=== PATIENT | male | born 1955 | race Two or more races ===

== ENCOUNTER 2023-12-29 06:32 | Inpatient (IN) | payer SELFPAY ==
[2023-12-29] MEDS ORDERED: ACETAMINOPHEN INJECTION 100 ML IVPB ONE (07:56)
[2023-12-29] MEDS ORDERED: MECLIZINE HCL 25 MG TABLET (FP) ONE (07:56)
[2023-12-29] MEDS: ACETAMINOPHEN 1000 MG/100 ML BAG IVPB ONE (08:01)
[2023-12-29] MEDS: MECLIZINE HCL 25 MG TABLET (FP) PO ONE (08:01)
[2023-12-29 08:23] LABS: INR 1.21 (0.83-1.09); PROTHROMBIN TIME (PATIENT) 13.6 SEC (9.7-13.0)
[2023-12-29 08:26] LABS: ACTIVATED PTT 34.8 SECONDS (25.2-36.5); BASO % 0.9 % (0-2.0); EOS % 3.9 % (0-4.5); HEMATOCRIT 44.1 % (35.4-49); HEMOGLOBIN 14.8 GM/dL (11.7-16.9); LYMPH % 42.5 % (8-40); MCH 31.8 pg (25.7-33.7); MCHC 33.6 g/dl (32.0-35.9); MEAN CELL VOLUME 94.5 fl (80-96); MEAN PLT VOLUME 8.3 fl (7.5-11.1); MONO % 17.8 % (3.8-10.2); NEUT % 34.9 % (42.8-82.8); PLATELET COUNT 170 10^3/uL (134-434); RBC 4.67 M/mm3 (4.00-5.60); RDW 15.1 % (11.9-15.9); WHITE BLOOD COUNT 5.4 K/mm3 (4.0-10.0)
[2023-12-29 08:47] LABS: POTASSIUM 4.6 mmol/L (3.5-5.1)
[2023-12-29 08:49] LABS: CALCIUM 9.1 mg/dL (8.5-10.1)
[2023-12-29 08:50] LABS: ALBUMIN 3.4 g/dl (3.4-5.0); BLOOD UREA NITROGEN 16.4 mg/dL (7-18); MAGNESIUM 1.8 mg/dL (1.8-2.4)
[2023-12-29 08:53] LABS: CREATININE 1.2 mg/dL (0.55-1.3)
[2023-12-29 08:54] LABS: BILIRUBIN,TOTAL 0.5 mg/dL (0.2-1)
[2023-12-29 08:55] LABS: TOT PROT 7.2 g/dl (6.4-8.2)
[2023-12-29 09:38] LABS: N-TERMINAL BNP 352.1 pg/ml (5-125)
[2023-12-29] MEDS ORDERED: MECLIZINE HCL 12.5 MG TABLET PO PRN (12:18)
[2023-12-29] MEDS: INSULIN ASPART SLIDING SCALE (NOVOLOG) 1 VIAL SQ SCH (17:06)
[2023-12-29] MEDS ORDERED: hydrALAZINE HCL 20 MG/ML VIAL IVPUSH PRN (18:36)
[2023-12-29 18:43] VITALS: BMI 39.6
[2023-12-29] MEDS: CARVEDILOL 6.25 MG TABLET (FP) PO SCH (19:03)
[2023-12-29] MEDS: APIXABAN 5 MG TABLET PO SCH (21:48)
[2023-12-30 07:35] LABS: BASO % 0.7 % (0-2.0); EOS % 2.6 % (0-4.5); HEMATOCRIT 46.8 % (35.4-49); HEMOGLOBIN 15.9 GM/dL (11.7-16.9); LYMPH % 38.7 % (8-40); MCH 32.2 pg (25.7-33.7); MCHC 33.9 g/dl (32.0-35.9); MEAN CELL VOLUME 94.8 fl (80-96); MONO % 12.1 % (3.8-10.2); NEUT % 45.9 % (42.8-82.8); PLATELET COUNT 146 10^3/uL (134-434); RBC 4.94 M/mm3 (4.00-5.60); WHITE BLOOD COUNT 6.6 K/mm3 (4.0-10.0)
[2023-12-30 07:40] LABS: POTASSIUM 4.2 mmol/L (3.5-5.1)
[2023-12-30 07:52] LABS: CALCIUM 9.1 mg/dL (8.5-10.1)
[2023-12-30 07:53] LABS: BLOOD UREA NITROGEN 13.7 mg/dL (7-18); MAGNESIUM 1.9 mg/dL (1.8-2.4)
[2023-12-30 07:56] LABS: CREATININE 1.1 mg/dL (0.55-1.3); PHOSPHOROUS 3.5 mg/dL (2.5-4.9)
[2023-12-30] MEDS: CARVEDILOL 6.25 MG TABLET (FP) PO SCH (09:32)
[2023-12-30] MEDS: amLODIPine BESYLATE 5 MG TABLET (FP) PO SCH (09:32)
[2023-12-30] MEDS: FUROSEMIDE 40 MG TABLET (FP) PO SCH (09:32)
[2023-12-30 12:52] LABS: URINE APPEARANCE CLEAR; URINE BILIRUBIN NEGATIVE (NEGATIVE); URINE COLOR YELLOW; URINE GLUCOSE (UA) NEGATIVE (NEGATIVE); URINE KETONE NEGATIVE (NEGATIVE); URINE LEUK ESTERASE NEGATIVE (NEGATIVE); URINE NITRITE NEGATIVE (NEGATIVE); URINE PROTEIN NEGATIVE (NEGATIVE)
[2023-12-30] MEDS: ROSUVASTATIN CA 20 MG TABLET PO SCH (21:47)
[2023-12-31 06:01] VITALS: RESP 18
[2023-12-31 07:30] LABS: EOS % 1.8 % (0-4.5); HEMATOCRIT 48.8 % (35.4-49); HEMOGLOBIN 16.4 GM/dL (11.7-16.9); LYMPH % 40.8 % (8-40); MCH 31.8 pg (25.7-33.7); MCHC 33.6 g/dl (32.0-35.9); MEAN CELL VOLUME 94.6 fl (80-96); MEAN PLT VOLUME 8.1 fl (7.5-11.1); MONO % 10.7 % (3.8-10.2); NEUT % 45.7 % (42.8-82.8); PLATELET COUNT 182 10^3/uL (134-434); RBC 5.15 M/mm3 (4.00-5.60); WHITE BLOOD COUNT 6.3 K/mm3 (4.0-10.0)
[2023-12-31 07:54] LABS: POTASSIUM 4.5 mmol/L (3.5-5.1)
[2023-12-31 08:05] LABS: ALBUMIN 3.6 g/dl (3.4-5.0); BLOOD UREA NITROGEN 17.8 mg/dL (7-18); CALCIUM 9.3 mg/dL (8.5-10.1); MAGNESIUM 1.8 mg/dL (1.8-2.4)
[2023-12-31 08:08] LABS: CREATININE 1.2 mg/dL (0.55-1.3); PHOSPHOROUS 4.1 mg/dL (2.5-4.9)
[2023-12-31 08:09] LABS: BILIRUBIN,TOTAL 0.8 mg/dL (0.2-1)
[2023-12-31 14:24] VITALS: TEMP 97.8
[2023-12-31 14:32] VITALS: BP 137/92; PULSE 81
== END 2023-12-31 15:49 | disposition home or self-care (01) | DRG 111 ==
LOC: JER 06:32 → JERBED 11:21 → J2W 18:59 → OBSVTOIN 12-30 10:36 → J4W 12-30 22:32
PROVIDERS: ADMIT Student in an Organized Health Care Education/Training Program; ATTEND Internal Medicine
DX: R42 Dizziness and giddiness (principal); I11.0 Hypertensive heart disease with heart failure; I48.91 Unspecified atrial fibrillation; I50.9 Heart failure, unspecified; E78.5 Hyperlipidemia, unspecified; E11.9 Type 2 diabetes mellitus without complications
CPT/HCPCS: 36415; 70450-TC; 71045-TC-FY; 80048; 80053; 80061; 81003; 82962; 83036; 83735; 83880; 84100; 84484; 85025; 85610; 85730; 86850; 86900; 86901; 93005; 93010; 93306-TC; 97116-GP; 97161-GP; 99285-25; G0378; J0131

== ENCOUNTER 2024-08-08 09:11 | Emergency (ER) | payer OTHER ==
[2024-08-08 09:18] VITALS: BMI 38.6
[2024-08-08 10:46] LABS: HEMATOCRIT 43.3 % (35.4-49); HEMOGLOBIN 14.7 GM/dL (11.7-16.9); MCH 31.9 pg (25.7-33.7); MCHC 33.9 g/dl (32.0-35.9); MEAN CELL VOLUME 94.3 fl (80-96); MEAN PLT VOLUME 7.7 fl (7.5-11.1); PLATELET COUNT 194 10^3/uL (134-434); RBC 4.59 M/mm3 (4.00-5.60); RDW 14.3 % (11.9-15.9)
[2024-08-08 10:49] LABS: EPI CELLS 1 /uL (0-25.1); HYALINE CASTS 0 /uL (0-3.1); PH,URINE 6.5 (5.0-8.0); URINE APPEARANCE CLEAR; URINE BACTERIA 1 /uL (0-1359); URINE BILIRUBIN NEGATIVE (NEGATIVE); URINE COLOR YELLOW; URINE GLUCOSE (UA) NEGATIVE (NEGATIVE); URINE KETONE NEGATIVE (NEGATIVE); URINE LEUK ESTERASE NEGATIVE (NEGATIVE); URINE NITRITE NEGATIVE (NEGATIVE); URINE PROTEIN NEGATIVE (NEGATIVE); URINE RBC 18 /uL (0-23.9); URINE WBC 0 /uL (0-25.8)
[2024-08-08 10:52] LABS: INR 1.31 (0.83-1.09); PROTHROMBIN TIME (PATIENT) 14.7 SEC (9.7-13.0)
[2024-08-08 10:54] LABS: ACTIVATED PTT 35.8 SECONDS (25.2-36.5)
[2024-08-08 11:09] LABS: POTASSIUM 4.1 mmol/L (3.5-5.1)
[2024-08-08 11:11] LABS: CALCIUM 9.4 mg/dL (8.5-10.1)
[2024-08-08 11:12] LABS: ALBUMIN 3.8 g/dl (3.4-5.0); BLOOD UREA NITROGEN 23.6 mg/dL (7-18)
[2024-08-08 11:14] LABS: CREATININE 1.1 mg/dL (0.55-1.3)
[2024-08-08 11:16] LABS: BILIRUBIN,TOTAL 0.7 mg/dL (0.2-1); TOT PROT 7.8 g/dl (6.4-8.2)
[2024-08-08] MEDS ORDERED: ACETAMINOPHEN INJECTION 100 ML ONE (11:19)
[2024-08-08] MEDS: ACETAMINOPHEN 1000 MG/100 ML BAG IVPB ONE (12:01)
[2024-08-08 15:51] VITALS: BP 117/86; PULSE 76; RESP 17; TEMP 97.9
== END 2024-08-08 15:52 | disposition home or self-care (01) ==
LOC: JER 09:11
PROC: 3E033NZ Introduction of Analgesics, Hypnotics, Sedatives into Peripheral Vein, Percutaneous Approach (ICD-10-PCS; principal; 2024-08-08)
DX: R07.81 Pleurodynia (principal)
CPT/HCPCS: 36415; 71275-TC; 74174-TC; 80053; 81003; 84484; 85027; 85610; 85730; 86850; 86900; 86901; 87086; 93005; 93010; 99285-25; J0131; Q9967